=== PATIENT | male | born 1950 | race Caucasian/White ===

== ENCOUNTER 2018-08-29 18:00 | Emergency (ER) | payer MEDICARE, OTHER ==
[2018-08-29] MEDS ORDERED: Ketorolac Tromethamine 30 MG/ML VIAL ONE (18:30)
[2018-08-29 18:57] LABS: Bilirubin Negative (Negative); Blood, Urine Negative (Negative); Clarity CLEAR (Clear); Glucose, Urine (Dipstick) Negative (Negative); Leukocyte Negative (Negative); Nitrite Negative (Negative); Protein, Urine (Dipstick) 30 mg/dL (Neg-Trace); Specific Gravity, Urine 1.018 (1.002-1.036)
[2018-08-29 19:00] LABS: Bacteria/HPF None Seen HPF (None Seen); Pathc Cast-AUWi Flag 2.03 (0-2.49); Squamous Epithelial 0-3 HPF (0-3); WBC/HPF 0-3 HPF (0-3)
--- NOTE | 2018-08-29 19:04 | CT ---
CT BRAIN WITHOUT CONTRAST: History: Fall. Dizziness. Comparison: None. FINDINGS: No acute hemorrhage or infarct. No midline shift of mass effect. Ventricular size and extraaxial CSF spaces are normal. Calvarium is intact. Paranasal sinuses and mastoids are clear. The globes are normal. IMPRESSION: No acute intracranial abnormality. POS: [facility]
--- NOTE | 2018-08-29 19:06 | CT ---
CT CERVICAL SPINE WITHOUT CONTRAST: History: Fall with dizziness. Comparison: None. FINDINGS: The occipital condyles are intact. The odontoid process is intact. No acute fracture or malalignment of the cervical spine. Subtle anterior buckling of the T1 anterior vertebral body, likely chronic, as there is no perivertebral hematoma or swelling. Lung apices are clear. There is a subcentimeter hypodensity right lobe of the thyroid. Moderate vascu lar calcifications of the carotid bulbs. IMPRESSION: No acute fracture or malalignment of the cervical spine. POS: [facility]
--- NOTE | 2018-08-29 19:07 | RAD ---
CHEST ONE VIEW: History: Chest pain. Fall. Comparison: None. FINDINGS: Heart size is mildly enlarged. No pneumothorax. No effusion. No acute displaced rib fracture. IMPRESSION: No acute intrathoracic abnormality. POS: [facility]
[2018-08-29 19:10] LABS: Hyaline Casts/LPF 0-3 HYALINE CAST LPF (0-3 Hyaline); Renal Epithelial None Seen HPF (0-3); Transitional Epithelial NONE SEEN HPF (0-3)
--- NOTE | 2018-08-29 19:41 | CT ---
CT LUMBAR SPINE WITHOUT CONTRAST: History: Fall, right sided back pain. Comparison: None. Technique: Noncontrast lumbar spine CT is performed in the axial plane. Reformatted images are submit jose for interpretation. FINDINGS: 3 cm cyst in the right kidney. Minimal nonspecific left perinephric fat stranding. The visualized int ra and extrarenal collecting system does not demonstrate any obstruction bilaterally. Minimal diverti culosis in the sigmoid colon. No retroperitoneal mass, lymphadenopathy, or hematoma. Visualized aorta has a normal caliber. Symmetric attenuation of the psoas muscles. Sacral ala are intact. Vacuum joint phenomenon in both SI joints. No malalignment in the AP or sagittal reformatted images. No spondylolisthesis. No spondolysis. Lumbar spine vertebral body height is maintained. No fracture. Limited evaluation of the contents of the central spinal canal and neural foramina due to technique. T11-12: Minimal vacuum disc phenomenon. No significant central canal stenosis or foraminal narrowing. T12-L1: No significant central canal stenosis or foraminal narrowing. L1-2: No significant central canal stenosis or foraminal narrowing. L2-3: Generalized disc bulge, ligamentum flavum thickening and mild central canal stenosis. Right tatiana ral foramen is patent. Mild left foraminal narrowing. L3-4: Generalized disc bulge, ligamentum flavum thickening results in mild central canal stenosis. Mi ld right and moderate left foraminal narrowing. L4-5: Broad based disc bulge, ligamentum flavum thickening results in moderate central canal stenosis . Moderate right and left foraminal narrowing. L5-S1: No high grade central canal stenosis. Mild right and left foraminal narrowing. IMPRESSION: 1. Degenerative change lumbar spine as above. 2. No evidence of lumbar spine fracture. POS: [facility]
[2018-08-29] MEDS ORDERED: Cyclobenzaprine 10 MG TAB ONE (19:42)
== END 2018-08-29 19:55 | disposition home or self-care (01) ==
LOC: ERS 18:00
DX: S30.0XXA Contusion of lower back and pelvis, initial encounter (principal); S80.811A Abrasion, right lower leg, initial encounter; S10.91XA Abrasion of unspecified part of neck, initial encounter; E78.5 Hyperlipidemia, unspecified; I10 Essential (primary) hypertension; Z79.899 Other long term (current) drug therapy; Z79.82 Long term (current) use of aspirin; W19.XXXA Unspecified fall, initial encounter
CPT/HCPCS: 70450; 71045; 72125; 72131; 81003; 81015; 96372; J1885

== ENCOUNTER 2025-03-22 08:54 | Outpatient (CLI) | payer MEDICARE ==
[2025-03-22 10:30] LABS: #Basophils 0.05 10x3/uL (0.0-0.2); #Eosinophils 0.29 10x3/uL (0.0-0.7); #Monocytes 0.70 10x3/uL (0.11-0.59); #Neutrophils 2.41 10x3/uL (1.40-6.50); %Basophils 0.9 % (0.0-1.0); %Eosinophils 5.4 % (0.0-10.0); %Lymphocytes 35.2 % (21.0-51.0); %Monocytes 13.1 % (0.0-10.0); %Neutrophils 45.2 % (42.0-75.0); Hematocrit 42.2 % (42.0-52.0); Hemoglobin 14.1 g/dL (14.0-18.0); Mean Corpuscular Hemoglobin 31.2 pg (27.0-31.0); Mean Corpuscular Volume 93.4 fL (78.0-98.0); Platelet Count 229 10x3/uL (130-400); Red Blood Cell (RBC) Count 4.52 mill/uL (4.70-6.10); White Blood Cell (WBC) Count 5.34 10x3/uL (4.8-10.8)
[2025-03-22 10:44] LABS: INR-International Normal Ratio 1.0; Prothrombin Time 13.2 sec (12.0-14.7)
[2025-03-22 10:48] LABS: Anion Gap 11 mmol/L (10-20); BUN (Urea Nitrogen) 16 mg/dL (8.4-25.7); Calc. Creatinine Clearance 0 mL/min (70-130); Calcium 9.2 mg/dL (7.8-10.44); Carbon Dioxide 27 mmol/L (23-31); Chloride 103 mmol/L (98-107); Glucose 79 mg/dL (83-110); Potassium 4.2 mmol/L (3.5-5.1); Sodium 137 mmol/L (136-145)
[2025-03-22 10:53] LABS: Bacteria/HPF None Seen HPF (None Seen); Glucose, Urine (Dipstick) Normal (Negative); Leukocyte Negative Leu/uL (Negative); Protein, Urine (Dipstick) Negative (Neg-Trace); RBC/HPF None Seen HPF (0-3); Specific Gravity, Urine 1.008 (1.002-1.036); WBC/HPF None Seen HPF (0-3)
== END 2025-03-22 08:55 | disposition home or self-care (01) ==
LOC: LABBT 08:54
PROVIDERS: ATTEND Orthopaedic Surgery
DX: Z01.818 Encounter for other preprocedural examination (principal); M17.12 Unilateral primary osteoarthritis, left knee
CPT/HCPCS: 71046; 80048; 81001; 85025; 85610; 87081; 93005; 93010

== ENCOUNTER 2025-03-22 09:55 | Outpatient (CLI) | payer MEDICARE | END 2025-03-22 09:56 | disposition home or self-care (01) | LOC: BICCT 09:55 | PROVIDERS: ATTEND Orthopaedic Surgery | DX: Z01.818 Encounter for other preprocedural examination (principal); M17.12 Unilateral primary osteoarthritis, left knee | CPT/HCPCS: 71046; 80048; 81001; 85025; 85610; 87081; 93005; 93010 ==

== ENCOUNTER 2025-03-29 05:14 | Observation (INO) | payer MEDICARE ==
[2025-03-22 09:07] VITALS: BMI 29.4
[2025-03-29] MEDS ORDERED: PROPOFOL 20 ML ONE (06:28)
[2025-03-29] MEDS ORDERED: Lidocaine 1% PF 5 ML VIAL ONE (06:28)
[2025-03-29] MEDS ORDERED: Ondansetron PF 4 MG/2 ML Vial ONE ×2 (06:28→11:23)
[2025-03-29] MEDS ORDERED: fentaNYL PF 100 MCG/2 ML SYRINGE ONE ×3 (06:28→09:43)
[2025-03-29] MEDS ORDERED: Lidocaine 2% 6 ML (Jelly) SYR ONE (06:29)
[2025-03-29] MEDS ORDERED: Tranexamic Acid 1,000 MG/10 ML VIAL ONE ×2 (06:31→08:58)
[2025-03-29] MEDS ORDERED: Vancomycin HCl 1.5 GM VIAL ONE (06:31)
[2025-03-29] MEDS ORDERED: CEFAZOLIN 2 GM VIAL ONE (06:31)
[2025-03-29] MEDS ORDERED: Lidocaine 1% (PF) 30 ML VIAL ONE ×2 (06:41→07:47)
[2025-03-29] MEDS ORDERED: HYDROcodone/Acetaminophen 10/325 mg Tablet PO PRN (07:30)
[2025-03-29] MEDS ORDERED: Ondansetron PF 4 MG/2 ML Vial IVP PRN ×2 (07:30→08:40)
[2025-03-29] MEDS ORDERED: Ropivacaine 0.2% 550 ML 550 ML NERVE BLCK SCH (07:30)
[2025-03-29] MEDS ORDERED: Ropivacaine 0.5% HCl/PF (150 MG/30 ML VIAL) ONE (07:47)
[2025-03-29] MEDS ORDERED: diphenhydrAMINE 25 MG CAP PO PRN (08:40)
[2025-03-29] MEDS ORDERED: Acetaminophen 325 MG TAB PO PRN (08:40)
[2025-03-29] MEDS ORDERED: HYDROmorphone 0.5 MG/0.5 ML SYRINGE ONE (08:58)
[2025-03-29] MEDS: Ketorolac Tromethamine 30 MG (1 mL) VIAL IVP SCH (16:14)
[2025-03-29 16:32] VITALS: BMI 29.4
[2025-03-29] MEDS: Aspirin 81 mg Enteric Coated Tablet PO SCH (19:46)
[2025-03-29] MEDS: Lisinopril 20 MG TAB PO SCH (19:46)
[2025-03-30 05:15] VITALS: TEMP 98.5
[2025-03-30 06:20] LABS: Hematocrit 35.6 % (42.0-52.0); Hemoglobin 11.9 g/dL (14.0-18.0); Mean Corpuscular Hemoglobin 31.4 pg (27.0-31.0); Mean Corpuscular Volume 93.9 fL (78.0-98.0); Platelet Count 197 10x3/uL (130-400); Red Blood Cell (RBC) Count 3.79 mill/uL (4.70-6.10); White Blood Cell (WBC) Count 10.79 10x3/uL (4.8-10.8)
[2025-03-30] MEDS: Aspirin Chewable 81 MG TAB PO SCH (07:26)
[2025-03-30] MEDS: HYDROcodone/Acetaminophen 10/325 mg Tablet PO PRN (09:36)
[2025-03-30] MEDS: Multivitamin W/ Minerals 1 TAB PO SCH (09:38)
[2025-03-30] MEDS: Ferrous Gluconate 324 MG TAB PO SCH (09:38)
[2025-03-30] MEDS: Senokot S 8.6-50 MG TAB PO SCH (09:38)
[2025-03-30 09:39] VITALS: BP 137/82
[2025-03-30] MEDS: PNEUMOC 20-VAL CONJ-DIP CRM/PF 0.5 ML SYRINGE IM ONE (11:32)
== END 2025-03-30 12:33 | disposition home or self-care (01) ==
LOC: SDC 05:14 → SURG A 14:26
PROVIDERS: ADMIT Orthopaedic Surgery; ATTEND Orthopaedic Surgery
PROC: 3E0T3BZ Introduction of Anesthetic Agent into Peripheral Nerves and Plexi, Percutaneous Approach (ICD-10-PCS; principal; 2025-03-29)
PROC: 0SRD0JZ Replacement of Left Knee Joint with Synthetic Substitute, Open Approach (ICD-10-PCS; principal; 2025-03-29)
PROC: 0S9C3ZZ Drainage of Right Knee Joint, Percutaneous Approach (ICD-10-PCS; principal; 2025-03-29)
DX: M17.0 Bilateral primary osteoarthritis of knee (principal); I10 Essential (primary) hypertension; Z98.890 Other specified postprocedural states
CPT/HCPCS: 0055T; 20610; 27447; 64448; 36415; 85027; A4306; C1713; C1776; C1889; J0665; J1010; J1100; J1171; J1885; J2250; J2704; J2795; J7030